=== PATIENT | male | born 1990 | race Two or more races ===

== ENCOUNTER 2025-06-13 17:19 | Emergency (ER) | payer MEDICAID, SELFPAY ==
[2025-06-13 17:20] VITALS: BMI 36.9
--- NOTE | 2025-06-13 17:43 | PC.NURSE ---
Pt A&O times three, pt in nad, resp are even and unlabored, pt is still sweating profusely pt states he no longer wants to be seen, verbalized understanding of risk and consequences of leaving up to and including , pt states he still does not want to be seen, pt encouraged to follow up, and to come back if it gets worse or he changes his mind
== END 2025-06-13 18:04 | disposition left against medical advice (07) ==
LOC: SERX 17:51
PROVIDERS: Emergency Provider Family Medicine
DX: Z53.21 Procedure and treatment not carried out due to patient leaving prior to being seen by health care provider (principal)
CPT/HCPCS: 99281